=== PATIENT | female | born 1945 | race Caucasian/White ===

== ENCOUNTER 2023-01-04 12:49 | Observation (INO) ==
[2023-01-04] MEDS ORDERED: ZOFRAN INJ 4 MG VIAL IVP PRN (13:40)
[2023-01-04] MEDS ORDERED: CONSULT PHARMACY - POTASSIUM & MAGNESIUM XX SCH (14:00)
[2023-01-04 14:07] LABS: BASOPHILS # (AUTO) 0.1 X10^3/uL (0.0-0.1); BASOPHILS % (AUTO) 0.8 % (0.2-1.0); EOSINOPHILS # (AUTO) 0.1 x10^3/uL (0.0-0.2); EOSINOPHILS % (AUTO) 2.1 % (0.9-2.9); HEMATOCRIT 45.7 % (36.0-47.0); HEMOGLOBIN 14.8 g/dL (12.0-16.0); LYMPHOCYTES # (AUTO) 1.1 X10^3/uL (1.3-2.9); LYMPHOCYTES % (AUTO) 16.8 % (21.0-51.0); MEAN CORPUSCULAR HEMOGLOBIN 25.8 pg (27.0-34.0); MEAN CORPUSCULAR HGB CONC 32.3 g/dL (33.0-35.0); MEAN PLATELET VOLUME 8.5 fL (7.4-11.0); MONOCYTES # (AUTO) 0.6 x10^3/uL (0.3-0.8); MONOCYTES % (AUTO) 8.8 % (0.0-13.0); NEUTROPHILS # (AUTO) 4.9 x10^3/uL (2.2-4.8); NEUTROPHILS % (AUTO) 71.5 % (42.0-75.0); PLATELET COUNT 278 X10^3/uL (150.0-450.0); RED BLOOD COUNT 5.72 X10^6/uL (3.5-5.4); WHITE BLOOD COUNT 6.9 X10^3/uL (3.6-10.0)
[2023-01-04 14:16] LABS: ALANINE AMINOTRANSFERASE 15 Units/L (12-78); ALBUMIN 4.1 g/dL (3.4-5.0); ALKALINE PHOSPHATASE 70 Units/L (46-116); AMYLASE 31 Units/L (25-115); ASPARTATE AMINO TRANSFERASE 11 Units/L (15-37); BLOOD UREA NITROGEN 10 mg/dL (7-18); CALCIUM 9.1 mg/dL (8.5-10.1); CARBON DIOXIDE 26.6 mmol/L (21-32); CHLORIDE 100 mmol/L (98-107); CREATININE 0.76 mg/dL (0.55-1.02); GLUCOSE 95 mg/dL (65-99); LIPASE 17 Units/L (16-77); POTASSIUM 3.9 mmol/L (3.5-5.1); SODIUM 137 mmol/L (136-145); TOTAL PROTEIN 7.3 g/dL (6.4-8.2); eGFR NON BLACK RACES > 60 (>60)
[2023-01-04] MEDS: NS 1,000 ML IV 1,000 ML IV SCH (14:20)
[2023-01-04 14:23] VITALS: BMI 22.7
[2023-01-04] MEDS: MORPHINE SULFATE INJ 2 MG INJ IVP PRN ×2 (15:56→21:44)
[2023-01-04 18:17] LABS: BILIRUBIN,URINE NEGATIVE (NEGATIVE); BLOOD/HEMOGLOBIN,URINE NEGATIVE (NEGATIVE); GLUCOSE, URINE NEGATIVE (NEGATIVE); KETONES,URINE 2+ (NEGATIVE); LEUKOCYTE ESTERASE ,URINE NEGATIVE (NEGATIVE); NITRITES,URINE NEGATIVE (NEGATIVE); PH,URINE 6.5 (5.0 - 8.0); PROTEIN,URINE 1+ (NEGATIVE); UROBILINOGEN,URINE NORMAL (NORMAL)
[2023-01-04 18:26] LABS: APPEARANCE,URINE CLEAR (CLEAR); COLOR,URINE STRAW (YELLOW)
[2023-01-04 18:28] LABS: BACTERIA,URINE TRACE /HPF (NEGATIVE); RBC,URINE 0-2 /HPF (0-3); SQUAMOUS EPITHELIAL CELL,UR FEW /HPF (NEGATIVE)
[2023-01-04] MEDS ORDERED: ELAVIL PO SCH (21:00)
[2023-01-04] MEDS ORDERED: CATAPRES TAB 0.2 MG PO SCH (21:00)
[2023-01-04] MEDS ORDERED: NORCO 10/325 TAB PO PRN (21:00)
[2023-01-04] MEDS ORDERED: AMBIEN PO PRN (21:13)
[2023-01-04] MEDS: PROCARDIA XL PO SCH (23:42)
[2023-01-04] MEDS: COREG TAB 25 MG PO SCH (23:42)
[2023-01-04] MEDS: NEURONTIN CAP 400 MG PO SCH (23:43)
[2023-01-04] MEDS: ZANAFLEX PO SCH (23:43)
[2023-01-05] MEDS: NS 1,000 ML IV 1,000 ML IV SCH (02:26)
[2023-01-05 06:24] LABS: BASOPHILS % (AUTO) 0.3 % (0.2-1.0); EOSINOPHILS % (AUTO) 0.2 % (0.9-2.9); HEMATOCRIT 37.6 % (36.0-47.0); HEMOGLOBIN 12.1 g/dL (12.0-16.0); LYMPHOCYTES # (AUTO) 0.7 X10^3/uL (1.3-2.9); LYMPHOCYTES % (AUTO) 15.3 % (21.0-51.0); MEAN CORPUSCULAR HEMOGLOBIN 25.9 pg (27.0-34.0); MEAN CORPUSCULAR HGB CONC 32.3 g/dL (33.0-35.0); MEAN PLATELET VOLUME 8.4 fL (7.4-11.0); MONOCYTES # (AUTO) 0.2 x10^3/uL (0.3-0.8); NEUTROPHILS # (AUTO) 3.9 x10^3/uL (2.2-4.8); NEUTROPHILS % (AUTO) 79.2 % (42.0-75.0); PLATELET COUNT 209 X10^3/uL (150.0-450.0); RED CELL DISTRIBUTION WIDTH 14.8 % (11.6-16.5); WHITE BLOOD COUNT 4.9 X10^3/uL (3.6-10.0)
[2023-01-05 06:37] LABS: ALANINE AMINOTRANSFERASE 10 Units/L (12-78); ALKALINE PHOSPHATASE 51 Units/L (46-116); ASPARTATE AMINO TRANSFERASE 15 Units/L (15-37); BLOOD UREA NITROGEN 11 mg/dL (7-18); CALCIUM 8.1 mg/dL (8.5-10.1); CARBON DIOXIDE 22.7 mmol/L (21-32); CHLORIDE 105 mmol/L (98-107); COR CA(FOR HYPOALB) 8.9 mg/dL (8.5-10.1); CREATININE 0.56 mg/dL (0.55-1.02); GLUCOSE 87 mg/dL (65-99); POTASSIUM 4.4 mmol/L (3.5-5.1); SODIUM 138 mmol/L (136-145); TOTAL PROTEIN 5.5 g/dL (6.4-8.2); eGFR NON BLACK RACES > 60 (>60)
[2023-01-05] MEDS ORDERED: TAPAZOLE ONE (08:52)
[2023-01-05] MEDS: COREG TAB 25 MG PO SCH (08:58)
[2023-01-05] MEDS: PROCARDIA XL PO SCH (08:59)
[2023-01-05] MEDS: NEURONTIN CAP 400 MG PO SCH (08:59)
[2023-01-05] MEDS ORDERED: COZAAR PO SCH (09:00)
[2023-01-05] MEDS ORDERED: LOVENOX INJ 40 MG SYR SC SCH (09:00)
[2023-01-05] MEDS ORDERED: TAPAZOLE PO SCH (09:00)
[2023-01-05] MEDS: ZANAFLEX PO SCH (09:00)
[2023-01-05 12:32] VITALS: BP 171/71; PULSE 77; RESP 20; TEMP 97.9; O2SAT 95
--- NOTE | 2023-02-17 13:42 | DR.CARTERS ---
Short Stay Summary - Admission Date Date of Admission: 01/04/23 - Discharge Date Discharge Date: 01/05/23 - Admission Diagnoses (1) Abdominal pain Status: Acute (2) Nausea and vomiting Status: Acute (3) Pancreatic mass Status: Acute (4) HTN (hypertension) Status: Acute - Discharge Medications Discharge Medications: Home Medication List amitriptyline 25 mg tablet 25 mg PO QPM 01/04/23 [History] methimazole 5 mg tablet 5 mg PO QDAY 01/04/23 [History] nifedipine 30 mg tablet,extended release 24 hr 30 mg PO BID 01/04/23 [History] ondansetron 8 mg disintegrating tablet 4 mg PO PRN PRN 01/04/23 [History] Prescriptions: - Hospital Course Hospital Course: IS A 77 YEAR OLD PATIENT OF OURS. SHE WAS A DIRECT ADMISSION FROM THE OFFICE DUE TO COMPLAINTS OF PERSISTENT VOMITING, WEIGHT LOSS, GENERALIZED PAIN, GENERALIZED WEAKNESS. SHE REPORTS THAT SHE IS HAVING PAIN ALL OVER, BUT MOSTLY IN THE ABDOMEN. SHE RATES PAIN DULL AND 8/10. SHE RECENTLY HAD AN ABDOMEN/PELVIS CT WITH CONTRAST WHICH REVEALED A LOW-ATTENUATION AREA IN THE PANCREATIC GENU MEASURING APROXIMATELY 2.2X1.6 CM. SMALL PANCREATIC NEOPLASM POSSIBLE. SHE REPORTED THAT SHE HAD BEEN USING PHENERGAN SUPPOSITITORIES WITHOUT IMPROVEMENT IN NAUSEA. HER PMH INCLUDES: PACEMAKER, HYPERLIPIDEMIA, HTN, CHRONIC LOW BACK PAIN, GOITER, APPENDECTOMY, BILATERAL KNEE REPLACEMENT, RIGHT HIP FX REPAIR. ON ARRIVAL TO THE HOSPITAL, VITALS WERE 97.8-84-20-97%-199/94. LABS WERE OBTAINED. WBC 6.9, RBC 5.72, HGB 14.8, HCT 45.7, PLT COUNT 278, SODIUM 137, POTASSIUM 3.9, CHLORIDE 100, CARBON DIOXIDE 26.6, BUN 10, CREATININE 0.76, GLUCOSE 95, CALCIUM 9.1, TOTAL BILI 0.60, AST 11, ALT 15, ALK PHOS 70, TOTAL PROTEIN 7.3, ALBUMIN 4.1, AMYLASE 31, LIPASE 17, CEA 10.2. URINALYSIS AND URINE CULTURE WERE OBTAINED. URINALYSIS WAS UNREMARKABLE. ON ADMISSION, SHE WAS STARTED ON NORMAL SALINE AT 80 ML/HR, ZOFRAN 4MG IV Q4H PRN, MORPHINE SULFATE 2MG IV Q4H PRN, LOVENOX 40MG SC DAILY. HER HOME MEDICATIONS OF ZOLPIDEM PRN, TIZ ANIDINE, PROCARDIA XL, TAPAZOLE, COZAAR, NORCO, GABAPENTIN, CLONIDINE, COREG, AMITRIPTYLLINE, ESZOPICLONE WERE RESUME. OTHERWISE, WE PLANNED TO FOLLOW-UP WITH AM LABS AND CONTINUE TO MONITOR. ON THE MORNING FOLLOWING ADMISSION, PATIENT IS ALERT AND ORIENTED, LYING IN BED ON MORNING ROUNDS. SHE REPORTS IMPROVEMENT IN NAUSEA THIS MORNING. SHE DOES CONTINUE TO HAVE SOME INTERMITTENT ABDOMINAL PAIN, BUT DOES REPORT SLIGHT IMPROVEMENT SINCE ADMISSION. ON EXAMINATION, HEART IS REGULAR IN RATE AND RHYTHM. BILATERAL LUNGS ARE NOTED WITH DIMINISHED LUNG SOUNDS THROUGHOUT. ABDOMEN IS ROUND, SOFT, AND NOTED WITH DIFFUSE TENDERNESS TO PALPATION. NO UPPER OR LOWER EXTREMITY EDEMA NOTED. HER VITALS THIS MORNING ARE: 97.9-77-20-95%-171/71. LABS WERE REPEATED. SHE REMAINS HEMODYNAMICALLY STABLE. WE WANTED TO OBTAIN AN MRI, BUT PATIENT IS UNABLE TO HAVE IT DUE TO PRESENCE OF A PACEMAKER. WE PLANNED FOR DISCHARGE. INSTRUCTIONS FOR MEDICATIONS AND FOLLOW- UP WERE DISCUSSED WITH PATIENT. SHE VERBALIZED UNDERSTANDING OF ORDERS. SHE WAS INSTRUCTED TO CONTINUE HER CURRENT MEDICATIONS WITH NO CHANGES TO DOSAGES AND TO FOLLOW-UP IN THE OFFICE IN 1 WEEK. PATIENT WAS DISCHARGED HOME WITH HER FAMILY IN STABLE CONDITION. TIME SPENT ON CLINICAL ASSESSMENT, REVIEWING LABS AND IMAGING, DECISION MAKING, DISCHARGE INSTRUCTIONS, PREPARING DISCHARGE PAPERS, AND DOCUMENTATION GREATER THAN 75 MINUTES. - Discharge Plan Disposition: 01 HOME, SELF-CARE Condition: Stable - Follow up/Referrals Follow up/Referrals: Madan Horowitz [Primary Care Provider] - 01/12/23 9:30 am - Instructions Instructions: Dehydration, Adult, [id number], Rehydration, Adult Forms: Excuse From Work or School, Post Hospital Follow Up Care
== END 2023-01-05 12:10 | disposition home or self-care (01) ==
LOC: MED/SURG
PROVIDERS: ADMIT Internal Medicine; ATTEND Internal Medicine

== ENCOUNTER 2023-08-16 17:57 | Observation (INO) ==
[2023-08-16] MEDS: PROTONIX INJ 40 MG VIAL IVP SCH (20:05)
[2023-08-16] MEDS: ZOFRAN INJ 4 MG VIAL IVP PRN (20:05)
[2023-08-16] MEDS: NS 1,000 ML IV 1,000 ML IV SCH (20:06)
[2023-08-16 20:10] LABS: BASOPHILS % (AUTO) 0.5 % (0.2-1.0); EOSINOPHILS # (AUTO) 0.1 x10^3/uL (0.0-0.2); EOSINOPHILS % (AUTO) 1.4 % (0.9-2.9); HEMATOCRIT 42.9 % (36.0-47.0); HEMOGLOBIN 13.7 g/dL (12.0-16.0); LYMPHOCYTES # (AUTO) 1.1 X10^3/uL (1.3-2.9); LYMPHOCYTES % (AUTO) 14.2 % (21.0-51.0); MEAN CORPUSCULAR HEMOGLOBIN 25.9 pg (27.0-34.0); MEAN CORPUSCULAR VOLUME 80.9 fL (80.0-100.0); MEAN PLATELET VOLUME 8.3 fL (7.4-11.0); MONOCYTES % (AUTO) 12.5 % (0.0-13.0); NEUTROPHILS # (AUTO) 5.7 x10^3/uL (2.2-4.8); NEUTROPHILS % (AUTO) 71.4 % (42.0-75.0); PLATELET COUNT 253 X10^3/uL (150.0-450.0); RED CELL DISTRIBUTION WIDTH 14.4 % (11.6-16.5)
[2023-08-16 20:22] LABS: ALANINE AMINOTRANSFERASE 11 Units/L (12-78); ALBUMIN 4.3 g/dL (3.4-5.0); ALKALINE PHOSPHATASE 77 Units/L (46-116); ASPARTATE AMINO TRANSFERASE 12 Units/L (15-37); BLOOD UREA NITROGEN 16 mg/dL (7-18); CALCIUM 9.8 mg/dL (8.5-10.1); CARBON DIOXIDE 26.4 mmol/L (21-32); CHLORIDE 98 mmol/L (98-107); CREATININE 0.78 mg/dL (0.55-1.02); GLUCOSE 94 mg/dL (65-99); MAGNESIUM 1.8 mg/dL (2.0-2.9); POTASSIUM 3.5 mmol/L (3.5-5.1); SODIUM 136 mmol/L (136-145); TOTAL PROTEIN 7.4 g/dL (6.4-8.2); eGFR NON BLACK RACES > 60 (>60)
[2023-08-16] MEDS ORDERED: RESTORIL CAP 15 MG PO PRN (21:23)
[2023-08-16 21:38] LABS: BILIRUBIN,URINE NEGATIVE (NEGATIVE); BLOOD/HEMOGLOBIN,URINE 1+ (NEGATIVE); GLUCOSE, URINE NEGATIVE (NEGATIVE); KETONES,URINE 3+ (NEGATIVE); LEUKOCYTE ESTERASE ,URINE NEGATIVE (NEGATIVE); NITRITES,URINE NEGATIVE (NEGATIVE); PROTEIN,URINE NEGATIVE (NEGATIVE); UROBILINOGEN,URINE NORMAL (NORMAL)
[2023-08-16 21:47] LABS: COLOR,URINE YELLOW (YELLOW)
[2023-08-16 21:48] LABS: APPEARANCE,URINE CLEAR (CLEAR)
[2023-08-16 21:54] LABS: BACTERIA,URINE TRACE /HPF (NEGATIVE); SQUAMOUS EPITHELIAL CELL,UR RARE /HPF (NEGATIVE)
[2023-08-16] MEDS: PHENERGAN INJ 25 MG IM PRN (21:54)
[2023-08-16] MEDS: NORCO 5/325 MG TAB PO PRN (21:55)
[2023-08-16 22:55] VITALS: BMI 24.5
--- NOTE | 2023-08-16 23:15 | EKG ---
Test Reason : Hypertension protocol Blood Pressure : */* mmHG Vent. Rate : 74 BPM Atrial Rate : 74 BPM P-R Int : 162 ms QRS Dur : 88 ms QT Int : 422 ms P-R-T Axes : 48 48 60 degrees QTc Int : 468 ms Atrial-paced rhythm Abnormal ECG When compared with ECG of 21-SEP-2022 11:31, No significant change was found Confirmed by Neno Orellana MD ([id number]) on 08/17/2023 6:04:00 AM Referred By: Confirmed By: Neno Orellana MD
[2023-08-16] MEDS: CATAPRES TAB 0.1 MG PO ONE (23:30)
[2023-08-17] MEDS: APRESOLINE INJ 20 MG VIAL IVP ONE (00:20)
[2023-08-17] MEDS ORDERED: MAALOX or MYLANTA PO PRN (00:39)
[2023-08-17] MEDS: ATIVAN INJ 2 MG VIAL IVP PRN (01:20)
[2023-08-17] MEDS: CATAPRES TAB 0.2 MG PO ONE (01:20)
[2023-08-17] MEDS: MORPHINE SULFATE INJ 2 MG INJ IVP PRN (02:52)
[2023-08-17 06:43] LABS: BASOPHILS % (AUTO) 0.5 % (0.2-1.0); EOSINOPHILS # (AUTO) 0.1 x10^3/uL (0.0-0.2); EOSINOPHILS % (AUTO) 0.7 % (0.9-2.9); HEMOGLOBIN 13.4 g/dL (12.0-16.0); LYMPHOCYTES # (AUTO) 1.1 X10^3/uL (1.3-2.9); LYMPHOCYTES % (AUTO) 13.9 % (21.0-51.0); MEAN CORPUSCULAR HEMOGLOBIN 26.2 pg (27.0-34.0); MEAN CORPUSCULAR HGB CONC 32.7 g/dL (33.0-35.0); MEAN CORPUSCULAR VOLUME 80.1 fL (80.0-100.0); MEAN PLATELET VOLUME 8.8 fL (7.4-11.0); MONOCYTES # (AUTO) 0.9 x10^3/uL (0.3-0.8); NEUTROPHILS # (AUTO) 5.9 x10^3/uL (2.2-4.8); NEUTROPHILS % (AUTO) 73.9 % (42.0-75.0); PLATELET COUNT 273 X10^3/uL (150.0-450.0); RED BLOOD COUNT 5.12 X10^6/uL (3.5-5.4); RED CELL DISTRIBUTION WIDTH 14.2 % (11.6-16.5)
[2023-08-17 07:01] LABS: ALANINE AMINOTRANSFERASE 9 Units/L (12-78); ALKALINE PHOSPHATASE 70 Units/L (46-116); ASPARTATE AMINO TRANSFERASE 12 Units/L (15-37); BLOOD UREA NITROGEN 10 mg/dL (7-18); CALCIUM 9.1 mg/dL (8.5-10.1); CARBON DIOXIDE 22.3 mmol/L (21-32); CHLORIDE 101 mmol/L (98-107); CREATININE 0.62 mg/dL (0.55-1.02); GLUCOSE 92 mg/dL (65-99); MAGNESIUM 1.6 mg/dL (2.0-2.9); POTASSIUM 3.5 mmol/L (3.5-5.1); SODIUM 138 mmol/L (136-145); TOTAL PROTEIN 7.1 g/dL (6.4-8.2); eGFR NON BLACK RACES > 60 (>60)
[2023-08-17] MEDS ORDERED: CONSULT PHARMACY - POTASSIUM & MAGNESIUM XX SCH (08:00)
[2023-08-17] MEDS ORDERED: TAPAZOLE ONE (09:09)
[2023-08-17] MEDS: MAGNESIUM SULFATE 1 GRAM/100 mL PREMIX 1 G/100 ML BAG IV SCH (09:16)
[2023-08-17] MEDS: LIPITOR TAB 10 MG PO SCH (09:17)
[2023-08-17] MEDS: HYDROCHLOROTHIAZIDE 25 MG TAB PO SCH (09:17)
[2023-08-17] MEDS: ZANAFLEX PO SCH (09:17)
[2023-08-17] MEDS: NEURONTIN CAP 400 MG PO SCH (09:17)
[2023-08-17] MEDS: TAPAZOLE PO SCH (09:18)
[2023-08-17] MEDS: PROCARDIA XL PO SCH (09:18)
[2023-08-17] MEDS: COREG TAB 25 MG PO SCH (09:18)
[2023-08-17] MEDS: COZAAR PO SCH (09:18)
[2023-08-17] MEDS: TYLENOL 325 MG TAB PO PRN (09:22)
[2023-08-17] MEDS ORDERED: REGLAN INJ 10 MG VIAL IVP PRN (10:53)
--- NOTE | 2023-08-17 11:15 | DR.H&P ---
H&P History & Physical for Day of: H&P Date: 08/17/23 Chief Complaint Chief Complaint: N/V, abdominal pain History of Present Illness History of Present Illness: Ms Peterson is a 78y/o female with a PMH of HTN, Type 2 DM, GERD, hyperthyroidism and chronic nausea presented with worsening N/V that has been persistent for 5 days. Patient was seen at her PCP office yesterday and sent for direct admission due to worsening symptoms. Patient has been taking Zofran and Phenergan suppository at home with no relief. She has had chronic nausea for over a year. She goes to [facility] in [facility] and had EGD and colonoscopy recently. She has had 2 EGDs there. Her last CTAP had mentioned concern for pancreatic malignancy but she had that checked in [facility] and it was all normal. Her last EGD was in May and states she was told it was normal. She also sees GI in [place] and is supposed to be scheduled for a swallow study. She states she has trouble with swallowing solids including her medicines sometimes. It has been gradually worsening. She reports mild abdominal pain which has been constant. She describes it as soreness and has not worsened. Patient still has her gallbladder. Denies diarrhea, fever or chills. She was admitted for further management. Labs were done on admission and she was started on hydration, anti-emetics and pain control. Her BP was significantly elevated so she was started on the HTN protocol. This morning, she states nausea is slightly better after she received ativan. She has been drinking water. Plan: continue hydration, monitor electrolytes, replace as needed. Will get gallbladder US. Consult Dr Gunn. Add reglan, continue phenergan and ativan prn. Continue protonix, add pepcid. Resume home medications. PT as tolerated. NPO except meds for now. Advance diet as tolerated. Monitor AM labs/imaging. Time spent for clinical assessment, reviewing labs/imaging, physical exam, decision making and documentation greater than 45 mins. Past Medical History Past Medical History: Arthritis and Hypertension Past Surgical History Surgical History: Appendectomy Family History Family Medical History: Diabetes Mellitus and Hypertension Social History Does patient currently use any type of tobacco product: No Alcohol Use: None Drug Use: Prescription Drugs Medications Home Medications: Home Medications Medication Instructions Recorded Confirmed Type carvedilol 25 mg tablet 25 mg PO BID 09/21/22 08/16/23 History clonidine HCl 0.2 mg tablet 0.2 mg PO QPM 09/21/22 08/16/23 History eszopiclone 3 mg tablet 3 mg PO QPM PRN 09/21/22 08/16/23 History gabapentin 800 mg tablet 800 mg PO QID 09/21/22 08/16/23 History hydrocodone 10 mg-acetaminophen 1 tab PO QID PRN 09/21/22 08/16/23 History 325 mg tablet losartan 100 mg tablet 100 mg PO QDAY 09/21/22 08/16/23 History tizanidine 4 mg tablet 4 mg PO QID 09/21/22 08/16/23 History amitriptyline 25 mg tablet 25 mg PO QPM 01/04/23 08/16/23 History methimazole 5 mg tablet 5 mg PO QDAY 01/04/23 08/16/23 History nifedipine 30 mg tablet,extended 30 mg PO BID 01/04/23 08/16/23 History release 24 hr ondansetron 8 mg disintegrating 4 mg PO PRN PRN 01/04/23 01/04/23 History tablet atorvastatin 10 mg tablet 10 mg PO QDAY 08/16/23 08/16/23 History hydrochlorothiazide 25 mg tablet 25 mg PO QDAY 08/16/23 08/16/23 History Allergies Allergies Allergy/AdvReac Type Severity Reaction Status Date / Time ciprofloxacin [From Cipro] Allergy Verified 01/04/23 14:23 Labs 08/17/23 06:02 08/17/23 06:02 Labs: Laboratory WBC 8.0 X10^3/uL (3.6-10.0) 08/17/23 06:02 RBC 5.12 X10^6/uL (3.5-5.4) 08/17/23 06:02 Hgb 13.4 g/dL (12.0-16.0) 08/17/23 06:02 Hct 41.0 % (36.0-47.0) 08/17/23 06:02 MCV 80.1 fL (80.0-100.0) 08/17/23 06:02 MCH 26.2 pg (27.0-34.0) L 08/17/23 06:02 MCHC 32.7 g/dL (33.0-35.0) L 08/17/23 06:02 RDW 14.2 % (11.6-16.5) 08/17/23 06:02 Plt Count 273 X10^3/uL (150.0-450.0) 08/17/23 06:02 MPV 8.8 fL (7.4-11.0) 08/17/23 06:02 Neut % (Auto) 73.9 % (42.0-75.0) 08/17/23 06:02 Lymph % (Auto) 13.9 % (21.0-51.0) L 08/17/23 06:02 [place] % (Auto) 11.0 % (0.0-13.0) 08/17/23 06:02 Eos % (Auto) 0.7 % (0.9-2.9) L 08/17/23 06:02 Baso % (Auto) 0.5 % (0.2-1.0) 08/17/23 06:02 Neut # (Auto) 5.9 x10^3/uL (2.2-4.8) H 08/17/23 06:02 Lymph # (Auto) 1.1 X10^3/uL (1.3-2.9) L 08/17/23 06:02 [place] # (Auto) 0.9 x10^3/uL (0.3-0.8) H 08/17/23 06:02 Eos # (Auto) 0.1 x10^3/uL (0.0-0.2) 08/17/23 06:02 Baso # (Auto) 0.0 X10^3/uL (0.0-0.1) 08/17/23 06:02 Absolute Nucleated RBC 0.1 /100WBC 08/17/23 06:02 Sodium 138 mmol/L (136-145) 08/17/23 06:02 Corrected Sodium TNP 08/17/23 06:02 Potassium 3.5 mmol/L (3.5-5.1) 08/17/23 06:02 Chloride 101 mmol/L (98-107) 08/17/23 06:02 Carbon Dioxide 22.3 mmol/L (21-32) 08/17/23 06:02 BUN 10 mg/dL (7-18) 08/17/23 06:02 Creatinine 0.62 mg/dL (0.55-1.02) 08/17/23 06:02 Est GFR (MDRD) Af Amer > 60 (>60) 08/17/23 06:02 Est GFR (MDRD) Non-Af > 60 (>60) 08/17/23 06:02 Glucose 92 mg/dL (65-99) 08/17/23 06:02 Calcium 9.1 mg/dL (8.5-10.1) 08/17/23 06:02 Corrected Calcium TNP 08/17/23 06:02 Magnesium 1.6 mg/dL (2.0-2.9) L 08/17/23 06:02 Total Bilirubin 0.50 mg/dL (0.2-1.0) 08/17/23 06:02 AST 12 Units/L (15-37) L 08/17/23 06:02 ALT 9 Units/L (12-78) L 08/17/23 06:02 Alkaline Phosphatase 70 Units/L (46-116) 08/17/23 06:02 Total Protein 7.1 g/dL (6.4-8.2) 08/17/23 06:02 Albumin 4.0 g/dL (3.4-5.0) 08/17/23 06:02 Globulin 3.1 g/dL (2.5-4.5) 08/17/23 06:02 Albumin/Globulin Ratio 1.3 Ratio (1.1-2.1) 08/17/23 06:02 Specimen Type Clean catch urine 08/16/23 21:20 Urine Color Yellow (YELLOW) 08/16/23 21:20 Urine Appearance Clear (CLEAR) 08/16/23 21:20 Urine pH 7.0 (5.0 - 8.0) 08/16/23 21:20 Ur Specific [place] 1.010 (1.000-1.030) 08/16/23 21:20 Urine Protein Negative (NEGATIVE) 08/16/23 21:20 Urine Glucose (UA) Negative (NEGATIVE) 08/16/23 21:20 Urine Ketones 3+ (NEGATIVE) 08/16/23 21:20 Urine Blood 1+ (NEGATIVE) 08/16/23 21:20 Urine Nitrite Negative (NEGATIVE) 08/16/23 21:20 Urine Bilirubin Negative (NEGATIVE) 08/16/23 21:20 Urine Urobilinogen Normal (NORMAL) 08/16/23 21:20 Ur Leukocyte Esterase Negative (NEGATIVE) 08/16/23 21:20 Urine RBC 3-5 /HPF (0-3) A 08/16/23 21:20 Urine WBC None seen /HPF (0-5) 08/16/23 21:20 Ur Squamous Epith Cells Rare /HPF (NEGATIVE) 08/16/23 21:20 Urine Bacteria Trace /HPF (NEGATIVE) 08/16/23 21:20 Ur Culture Indicated? No/not indicated 08/16/23 21:20 Review of Systems Constitutional: Weakness Eyes: No Symptoms Reported Respiratory: No Symptoms Reported Cardiovascular: No Symptoms Reported Gastrointestinal: Nausea, Vomiting and Abdominal Pain Genitourinary: No Symptoms Reported Musculoskeletal: No Symptoms Reported Skin: No Symptoms Reported Neurological: No Symptoms Reported Physical Exam Vital Signs: Vital Signs Temperature 98.2 F Temperature 98 F Pulse Rate [Left Radial] 97 Pulse Rate [Left Radial] 89 Respiratory Rate 21 Respiratory Rate 18 Respiratory Rate 21 Respiratory Rate 20 Respiratory Rate 21 Blood Pressure [Left Arm] 184/87 Blood Pressure [Left Arm] 176/89 O2 Sat by Pulse Oximetry 95 O2 Sat by Pulse Oximetry 96 Oriented: Normal Eyes: Normal Throat: Normal Respiratory: Clear Throughout Cardiovascular: Normal Auscultation: Bowel Sounds: Normal Tenderness: Epigastric, Periumbilical and Mild Skin: Normal Musculoskeletal: Normal Psychiatric: Normal Mood Description: Calm Affect: Anxious Speech Pattern: Clear and Appropriate Assessment/Plan (1) Abdominal pain: Qualifiers: Abdominal location: unspecified location Qualified Code(s): R10.9 - Unspecified abdominal pain Status: Acute (2) Dehydration: Status: Acute (3) Nausea and vomiting: Qualifiers: Vomiting type: unspecified Qualified Code(s): R11.2 - Nausea with vomiting, unspecified Status: Acute (4) HTN (hypertension): Qualifiers: Hypertension type: primary hypertension Qualified Code(s): I10 - Essential (primary) hypertension Status: Acute (5) GERD (gastroesophageal reflux disease): Qualifiers: Esophagitis presence: esophagitis presence not specified Qualified Code(s): K21.9 - Gastro-esophageal reflux disease without esophagitis Status: Acute Review H&P Reviewed: Yes Patient was examined?: Yes
[2023-08-17] MEDS: PEPCID 20 MG VIAL 20 MG in NS 50 ML IV 50 ML IV SCH (13:13)
--- NOTE | 2023-08-17 13:14 | US ---
EXAMINATION:GALL BLADDERHISTORY:N&V, ABD PAIN; .COMPARISON STUDY:None.TECHNIQUE:Right upper quadrant ultrasound was performedFINDINGS:Liver:Fatty liver. The liver measures 12 cm in greatest dimension. No focal hepatic lesions. Hepato pedal flow in the portal vein. Hepatic venous waveforms unremarkable. Hepatic artery patent.GB/Hakeem:No gallstones, wall thickening, pericholecystic fluid or sonographic Hernandez's sign. The common bile duct measures 3.5 mm.Pancreas:Obscured by bowel gas.IVC:Unremarkable with normal waveform.Other: No free fluid.Rt kidney:Normal echogenicity measuring 11.1 x 4.6 x 4.1 cm. Resistive index 0.78. Cortical thickness 1.8 cm.. No hydronephrosis or solid-appearing lesions..IMPRESSION:Fatty liver. No acute findingsTHIS IS AN ELECTRONICALLY VERIFIED FINAL REPORT08/17/2023 1:06 PM - Electronically signed by Dutch Hardy MD
[2023-08-17] MEDS: K-RIDER 10 MEQ/100 ML WATER 10 MEQ/100 ML BAG IV SCH (13:15)
[2023-08-17] MEDS: LOVENOX INJ 40 MG SYR SC SCH (13:16)
--- NOTE | 2023-08-17 14:58 | DR.PROGNOT ---
HOSPITAL PROGRESS NOTE Progress Note for Day of: Progress Note Date: 08/17/23 Chief Complaint Chief Complaint: Persistent nausea and vomiting over the past 5 days History of Present Illness History of Present Illness: Still complaining of nausea today with occasional vomiting. The pain was described as mild but more of nausea and vomiting. Her CAT scan showed abnormalities in the pancreas which will be evaluated in the future by endoscopy and endoscopy biopsy of the pancreas. Gallbladder ultrasound showed fatty liver with normal gallbladder, no evidence of gallstones. Liver function tests are normal, CBC is normal. Patient is afebrile, There is of her systemic review is documented in the consultation and the mariah ent history. Past Medical Family Social History Allergies: Allergies ciprofloxacin [From Cipro] Allergy (Verified 01/04/23 14:23) Vital Signs Vital Signs: Vital Signs Temperature 97.8 F Temperature 98.2 F Pulse Rate [Left Radial] 67 Pulse Rate [Left Radial] 97 Respiratory Rate 19 Respiratory Rate 21 Respiratory Rate 21 Respiratory Rate 18 Blood Pressure [Left Arm] 170/72 Blood Pressure [Left Arm] 184/87 O2 Sat by Pulse Oximetry 90 O2 Sat by Pulse Oximetry 95 Physical Exam Oriented: Normal Eyes: Normal Throat: Normal Cardiovascular: Normal GI:Auscultation: Normal GI: Tenderness: Epigastric, Periumbilical and Mild Skin: Normal Musculoskeletal: Normal Psychiatric: Normal Mood Description: Calm Affect: Anxious Speech Pattern: Clear and Appropriate Laboratory and Diagnostics 08/17/23 06:02 08/17/23 06:02 Labs: Laboratory WBC 8.0 X10^3/uL (3.6-10.0) 08/17/23 06:02 RBC 5.12 X10^6/uL (3.5-5.4) 08/17/23 06:02 Hgb 13.4 g/dL (12.0-16.0) 08/17/23 06:02 Hct 41.0 % (36.0-47.0) 08/17/23 06:02 MCV 80.1 fL (80.0-100.0) 08/17/23 06:02 MCH 26.2 pg (27.0-34.0) L 08/17/23 06:02 MCHC 32.7 g/dL (33.0-35.0) L 08/17/23 06:02 RDW 14.2 % (11.6-16.5) 08/17/23 06:02 Plt Count 273 X10^3/uL (150.0-450.0) 08/17/23 06:02 MPV 8.8 fL (7.4-11.0) 08/17/23 06:02 Neut % (Auto) 73.9 % (42.0-75.0) 08/17/23 06:02 Lymph % (Auto) 13.9 % (21.0-51.0) L 08/17/23 06:02 [place] % (Auto) 11.0 % (0.0-13.0) 08/17/23 06:02 Eos % (Auto) 0.7 % (0.9-2.9) L 08/17/23 06:02 Baso % (Auto) 0.5 % (0.2-1.0) 08/17/23 06:02 Neut # (Auto) 5.9 x10^3/uL (2.2-4.8) H 08/17/23 06:02 Lymph # (Auto) 1.1 X10^3/uL (1.3-2.9) L 08/17/23 06:02 [place] # (Auto) 0.9 x10^3/uL (0.3-0.8) H 08/17/23 06:02 Eos # (Auto) 0.1 x10^3/uL (0.0-0.2) 08/17/23 06:02 Baso # (Auto) 0.0 X10^3/uL (0.0-0.1) 08/17/23 06:02 Absolute Nucleated RBC 0.1 /100WBC 08/17/23 06:02 Sodium 138 mmol/L (136-145) 08/17/23 06:02 Corrected Sodium TNP 08/17/23 06:02 Potassium 3.5 mmol/L (3.5-5.1) 08/17/23 06:02 Chloride 101 mmol/L (98-107) 08/17/23 06:02 Carbon Dioxide 22.3 mmol/L (21-32) 08/17/23 06:02 BUN 10 mg/dL (7-18) 08/17/23 06:02 Creatinine 0.62 mg/dL (0.55-1.02) 08/17/23 06:02 Est GFR (MDRD) Af Amer > 60 (>60) 08/17/23 06:02 Est GFR (MDRD) Non-Af > 60 (>60) 08/17/23 06:02 Glucose 92 mg/dL (65-99) 08/17/23 06:02 Calcium 9.1 mg/dL (8.5-10.1) 08/17/23 06:02 Corrected Calcium TNP 08/17/23 06:02 Magnesium 1.6 mg/dL (2.0-2.9) L 08/17/23 06:02 Total Bilirubin 0.50 mg/dL (0.2-1.0) 08/17/23 06:02 AST 12 Units/L (15-37) L 08/17/23 06:02 ALT 9 Units/L (12-78) L 08/17/23 06:02 Alkaline Phosphatase 70 Units/L (46-116) 08/17/23 06:02 Total Protein 7.1 g/dL (6.4-8.2) 08/17/23 06:02 Albumin 4.0 g/dL (3.4-5.0) 08/17/23 06:02 Globulin 3.1 g/dL (2.5-4.5) 08/17/23 06:02 Albumin/Globulin Ratio 1.3 Ratio (1.1-2.1) 08/17/23 06:02 Specimen Type Clean catch urine 08/16/23 21:20 Urine Color Yellow (YELLOW) 08/16/23 21:20 Urine Appearance Clear (CLEAR) 08/16/23 21:20 Urine pH 7.0 (5.0 - 8.0) 08/16/23 21:20 Ur Specific [place] 1.010 (1.000-1.030) 08/16/23 21:20 Urine Protein Negative (NEGATIVE) 08/16/23 21:20 Urine Glucose (UA) Negative (NEGATIVE) 08/16/23 21:20 Urine Ketones 3+ (NEGATIVE) 08/16/23 21:20 Urine Blood 1+ (NEGATIVE) 08/16/23 21:20 Urine Nitrite Negative (NEGATIVE) 08/16/23 21:20 Urine Bilirubin Negative (NEGATIVE) 08/16/23 21:20 Urine Urobilinogen Normal (NORMAL) 08/16/23 21:20 Ur Leukocyte Esterase Negative (NEGATIVE) 08/16/23 21:20 Urine RBC 3-5 /HPF (0-3) A 08/16/23 21:20 Urine WBC None seen /HPF (0-5) 08/16/23 21:20 Ur Squamous Epith Cells Rare /HPF (NEGATIVE) 08/16/23 21:20 Urine Bacteria Trace /HPF (NEGATIVE) 08/16/23 21:20 Ur Culture Indicated? No/not indicated 08/16/23 21:20 Assessment and Plan 1: Persistent nausea and vomiting, rule out dysfunctional gallbladder. For HIDA scan and CCK stimulating test.
[2023-08-17] MEDS: ELAVIL PO SCH (21:51)
[2023-08-18] MEDS: CATAPRES TAB 0.2 MG PO SCH (00:56)
[2023-08-18 06:31] LABS: BASOPHILS % (AUTO) 0.5 % (0.2-1.0); EOSINOPHILS # (AUTO) 0.1 x10^3/uL (0.0-0.2); EOSINOPHILS % (AUTO) 2.1 % (0.9-2.9); HEMATOCRIT 35.2 % (36.0-47.0); HEMOGLOBIN 11.4 g/dL (12.0-16.0); LYMPHOCYTES # (AUTO) 0.7 X10^3/uL (1.3-2.9); LYMPHOCYTES % (AUTO) 14.7 % (21.0-51.0); MEAN CORPUSCULAR HEMOGLOBIN 26.5 pg (27.0-34.0); MEAN CORPUSCULAR HGB CONC 32.4 g/dL (33.0-35.0); MEAN CORPUSCULAR VOLUME 81.6 fL (80.0-100.0); MONOCYTES # (AUTO) 0.7 x10^3/uL (0.3-0.8); MONOCYTES % (AUTO) 14.4 % (0.0-13.0); NEUTROPHILS # (AUTO) 3.3 x10^3/uL (2.2-4.8); NEUTROPHILS % (AUTO) 68.3 % (42.0-75.0); PLATELET COUNT 189 X10^3/uL (150.0-450.0); RED BLOOD COUNT 4.31 X10^6/uL (3.5-5.4); RED CELL DISTRIBUTION WIDTH 14.6 % (11.6-16.5); WHITE BLOOD COUNT 4.9 X10^3/uL (3.6-10.0)
[2023-08-18 06:41] LABS: ALANINE AMINOTRANSFERASE 9 Units/L (12-78); ALKALINE PHOSPHATASE 59 Units/L (46-116); ASPARTATE AMINO TRANSFERASE 13 Units/L (15-37); BLOOD UREA NITROGEN 5 mg/dL (7-18); CALCIUM 8.1 mg/dL (8.5-10.1); CARBON DIOXIDE 24.9 mmol/L (21-32); CHLORIDE 107 mmol/L (98-107); COR CA(FOR HYPOALB) 8.9 mg/dL (8.5-10.1); CREATININE 0.56 mg/dL (0.55-1.02); GLUCOSE 110 mg/dL (65-99); MAGNESIUM 1.7 mg/dL (2.0-2.9); POTASSIUM 3.8 mmol/L (3.5-5.1); SODIUM 140 mmol/L (136-145); TOTAL PROTEIN 5.5 g/dL (6.4-8.2); eGFR NON BLACK RACES > 60 (>60)
[2023-08-18] MEDS ORDERED: K-DUR TAB 20 MEQ PO SCH (07:00)
[2023-08-18] MEDS ORDERED: CONSULT PHARMACY - POTASSIUM & MAGNESIUM XX SCH (07:00)
[2023-08-18] MEDS ORDERED: TAPAZOLE ONE (09:23)
[2023-08-18 09:35] VITALS: BP 178/69; PULSE 79; RESP 19; TEMP 97.9; O2SAT 96
[2023-08-18] MEDS: MAG-OX TAB PO SCH (09:39)
[2023-08-18] MEDS: PROCARDIA XL PO SCH (10:15)
== END 2023-08-18 12:42 | disposition home or self-care (01) ==
LOC: MED/SURG
PROVIDERS: ADMIT Internal Medicine; ATTEND Internal Medicine
DX: R11.2 Nausea with vomiting, unspecified; R13.11 Dysphagia, oral phase; R94.31 Abnormal electrocardiogram [ECG] [EKG]; K76.0 Fatty (change of) liver, not elsewhere classified; F41.8 Other specified anxiety disorders; E86.0 Dehydration; I10 Essential (primary) hypertension; E11.65 Type 2 diabetes mellitus with hyperglycemia; K21.9 Gastro-esophageal reflux disease without esophagitis; R10.84 Generalized abdominal pain